=== PATIENT | female | born 1980 | race Hispanic/Latino ===

== ENCOUNTER 2020-06-03 16:04 | Emergency (ER) | payer BC, SELFPAY ==
--- NOTE | ~2020-06-03 | CT_ITS ---
EXAMINATION: CT pelvis w con DATE: 06/03/2020 19:34 INDICATION: Left labial swelling and cellulitis. TECHNIQUE: Computed tomography (CT) of the pelvis was performed with 100 mL Omnipaque 350 intravenous contrast. Automated exposure control and iterative reconstruction technique were employed. The dose- length product was 738.47 mGy-cm. COMPARISON: None FINDINGS: There are no dilated loops of bowel. There are no pathologically enlarged lymph nodes. Ther e is trace pelvic ascites. There is a 4.6 x 2.8 x 5.4 cm cyst in the perineum on the left. There is m ild right hip osteoarthritis and advanced left hip osteoarthritis. There is mild lumbar spondylosis. IMPRESSION: 1. 4.6 x 2.6 x 5.4 cm cyst in the perineum on the left, likely a Bartholin's gland abscess. Reviewed, dictated and finalized at location A. IMPRESSION: 1. 4.6 x 2.6 x 5.4 cm cyst in the perineum on the left, likely a Bartholin's gl and abscess.
[2020-06-03 17:11] VITALS: BP 145/89; PULSE 112; RESP 20; TEMP 36.7; O2SAT 99
--- NOTE | 2020-06-03 18:08 | ED.SKABFB ---
HPI - Skin/Abscess/Foreign Bdy General Chief complaint: Skin/Abscess/Foreign Body Stated complaint: CYST ON BUTTOCK Time Seen by Provider: 06/03/20 17:47 Source: patient Mode of arrival: ambulatory Limitations: no limitations History of Present Illness HPI narrative: This is a 40 year old female that presents to the ER for left labial swelling x 2 days. Reports erythema and pain to the area. Denies drainage. Related Data Home Medications Medication Instructions Recorded Confirmed bupropion HCl 150 mg PO DAILY 06/03/20 hydrocodone-acetaminophen tablet 06/03/20 indomethacin 06/03/20 omeprazole 06/03/20 Allergies Allergy/AdvReac Type Severity Reaction Status Date / Time No Known Allergies Allergy Verified 06/03/20 18:37 Review of Systems Review of Systems: Narrative: CONSTITUTIONAL: Denies fever SKIN: Reports erythema and edema All systems reviewed & are unremarkable except as noted in HPI and below PMFSH Past Medical History Medical History (Updated 06/03/20 @ 21:52 by Lindsey May PA-C) History of depression Family History Family History (System 12/07/19 @ 09:27 by Marie Ahuja) Mother Hypertension Father Hypertension Sibling Hypertension Social History Social History (System 12/07/19 @ 09:27 by Marie Ahuja) Alcohol intake: current Exam Narrative: Exam Narrative: GENERAL: Well-appearing, well-nourished, and in no acute distress. HEAD: Normocephalic, atraumatic. EYES: EOMI. EXTREMITIES: Normal range of motion. No edema. SKIN: Warm, dry, no rash. NEURO: No focal deficits. Alert and oriented x3. PSYCH: Normal mood and affect FEMALE GENITAL: Left labia with moderate erythema and edema. Moderate sized bartholin cyst on the left, tender to palpation Course Consultations Consultation #1: Spoke with Dr. Willis about patient and work-up will follow-up in clinic Date: 06/03/20 Time: 21:46 Vital Signs Vital signs: Vital Signs Temperature 98.1 F 06/03/20 17:11 Pulse Rate 112 H 06/03/20 17:11 Respiratory Rate 06/03/20 17:11 Blood Pressure 145/89 H 06/03/20 17:11 Pulse Oximetry 99 06/03/20 17:11 Temperature 97.7 F 06/03/20 18:33 Pulse Rate 88 07/19/20 18:33 Respiratory Rate 18 06/03/20 18:33 Blood Pressure 127/85 06/03/20 18:33 Pulse Oximetry 98 06/03/20 18:33 Procedures Abscess I/D bartholin's gland: Date of Incision: 06/03/20 Time of Incision: 21:46 Local Anesthetic: lidocaine 1% Amount of anesthesia used (mL): 4 Technique: incised with #11 blade Packing used?: none I&D Results: Pus and Blood MDM - Skin/Abscess/Foreign Bdy MDM Narrative Medical decision making narrative: Patient presents the emergency department for Bartholin gland abscess. She is afebrile and nontoxic-appearing. CBC with mild leukocytosis to 12.9. Inflammatory markers are mildly elevated as well. CT scan of the pelvis shows a 4 x 2 x 5 cm Bartholin gland abscess. Abscess successfully drained. Spoke with Dr. Willis about patient and workup who will follow up in clinic. Patient will be placed on oral Bactrim. Patient is stable and felt appropriate for further outpatient evaluation. She is to follow-up with gynecology. She was given warnings to return to the ER Lab Data Attestation: I reviewed the patient's lab results. Result diagrams: 06/03/20 18:16 06/03/20 18:16 Labs: Lab Results 06/03/20 06/03/20 Range/Units 18:16 18:16 WBC 12.9 H (4.5-10.0) K/mm3 RBC 4.28 (4.2-5.4) M/mm3 Hgb 12.5 (12.0-15.0) g/dL Hct 37.3 (37.0-47.0) % MCV 87.1 (80-100) fl MCH 29.2 (26-34) pg MCHC 33.5 (32-36) g/dl RDW 13.2 (11.5-14.5) % Plt Count 283 (150-375) k/mm3 MPV 9.7 (7.4-10.4) fl Immature Gran % (Auto) 0.5 (0-0.5) % Neut % (Auto) 69.2 (45.5-73.1) % Lymph % (Auto) 22.9 (18.3-44.2) % [place] % (Auto) 5.7 (2.6-8.5) % Eos % (Auto)
[2020-06-03 18:22] LABS: Basophils Percent Auto 0.3 % (0.2-1.2); Eosinophils Absolute Auto 0.2 K/mm3 (0-0.3); Eosinophils Percent Auto 1.4 % (0-4.4); Hematocrit 37.3 % (37.0-47.0); Hemoglobin 12.5 g/dL (12.0-15.0); Immature Granulocyte Absolute 0.06 K/mm3 (0.00-0.031); Immature Granulocyte Percent A 0.5 % (0-0.5); Lymphocytes Absolute Auto 2.96 K/mm3 (0.9-3.2); Lymphocytes Percent Auto 22.9 % (18.3-44.2); Mean Corpuscular HGB Conc 33.5 g/dl (32-36); Mean Corpuscular Hemoglobin 29.2 pg (26-34); Mean Corpuscular Volume 87.1 fl (80-100); Mean Platelet Volume 9.7 fl (7.4-10.4); Monocytes Absolute Auto 0.7 K/mm3 (0.1-0.6); Monocytes Percent Auto 5.7 % (2.6-8.5); Neutrophils Percent Auto 69.2 % (45.5-73.1); Platelet Count Result 283 k/mm3 (150-375); Red Blood Count 4.28 M/mm3 (4.2-5.4); Red Cell Distribution Width 13.2 % (11.5-14.5); White Blood Count 12.9 K/mm3 (4.5-10.0)
[2020-06-03 18:33] VITALS: BP 127/85; PULSE 88; RESP 18; TEMP 36.5; O2SAT 98
[2020-06-03 18:35] LABS: Blood Urea Nitrogen 6 mg/dL (7-17); CRP 4.6 mg/dL (<1.0); Calcium 8.5 mg/dL (8.4-10.2); Carbon Dioxide 25 mmol/L (22-30); Chloride 103 mmol/L (98-107); Estimated CRCL calculation 103 ml/min; Estimated Glomerular Filt Rate > 60; Glucose 92 mg/dL (65-105); Potassium 4.4 mmol/L (3.4-5.0); Sodium 135 mmol/L (137-145)
[2020-06-03 18:50] LABS: Erythrocyte Sedimentation Rate 51 mm/hr (0-20)
[2020-06-03 22:40] VITALS: BP 145/82; PULSE 89; RESP 19; TEMP 36.6; O2SAT 94
== END 2020-06-03 22:08 | disposition home or self-care (01) ==
PROVIDERS: Physician Assistant; Emergency Provider Emergency Medicine; PCP Registered Nurse
DX: N75.1 Abscess of Bartholin's gland (principal); F32.9 Major depressive disorder, single episode, unspecified
CPT/HCPCS: 36415; 56420; 72193; 80048; 85025; 85652; 86140; 87070; 87205; 99284; Q9967

== ENCOUNTER 2021-12-07 17:30 | Emergency (ER) | payer BC, SELFPAY ==
--- NOTE | ~2021-12-07 | XR_ITS ---
EXAMINATION: XR lumbar spine 2-3V DATE: 12/07/2021 20:14 INDICATION: Pain after fall TECHNIQUE: Anteroposterior and lateral views of the lumbar spine, and cone-down lateral view of the l umbosacral junction were obtained. COMPARISON: None. FINDINGS: There is no fracture. There are 2 mm of anterolisthesis of L4 on L5 and L5 on S1. The verte bral body heights and intervertebral disc spaces are maintained. Advanced osteoarthritis is noted in the left hip. IMPRESSION: 1. Mild lumbar spondylosis without acute findings. 2. Advanced osteoarthritis of the left hip. Reviewed, dictated and finalized at location F. ET ACCOUNTANT
--- NOTE | ~2021-12-07 | XR_ITS ---
. EXAMINATION: XR hip LT 2V w AP pelvis INDICATION: Left hip pain TECHNIQUE: AP view the pelvis and two views of the left hip are obtained on four radiographs. COMPARISON: CT, 06/03/2020 FINDINGS: There is advanced osteoarthritis of the left hip and mild osteoarthritis of the right hip. No fracture is identified. The soft tissues are unremarkable. IMPRESSION: 1. Advanced osteoarthritis of the left hip without acute osseous abnormality. Reviewed, dictated and finalized at location F. NG BLOCK CUTTER
[2021-12-07 17:31] VITALS: BP 162/100; PULSE 110; RESP 18; TEMP 36.4; O2SAT 100
[2021-12-07] MEDS: KETOROLAC (*BKC) 60 MG/2 ML VIAL IM (20:15)
--- NOTE | 2021-12-07 20:31 | ED.GENADULT ---
HPI - General Adult General Chief complaint: Fall Stated complaint: fell/ left hip pain Time Seen by Provider: 12/07/21 18:03 Source: patient Mode of arrival: ambulatory Limitations: no limitations History of Present Illness HPI narrative: Patient presents for evaluation of left hip pain. She indicates she has chronic left hip pain and was told in the past that she needs a hip replacement. Yesterday she was at her sister's house and injured her hip. She sat down on the couch, which was missing a coil. She went through the seat and hit her left hip/posterior pelvis against the ground. She states she has 10 out of 10 pain in the affected area, without descriptive quality. No radicular component. Pain is worse with movement and palpation. Baseline functional status is ambulatory with cane. She is still able to bear weight and ambulate with a cane. She has been taking ibuprofen and gabapentin without much improvement in her symptoms thereafter. Related Data Home Medications Medication Instructions Recorded Confirmed bupropion HCl 150 mg PO DAILY 06/03/20 indomethacin 06/03/20 omeprazole 06/03/20 hydrocodone 10 mg-acetaminophen tablet PO Q6H tablet 02/25/21 325 mg tablet Allergies Allergy/AdvReac Type Severity Reaction Status Date / Time No Known Allergies Allergy Verified 12/07/21 17:36 Review of Systems Review of Systems: CONSTITUTIONAL: Denies fever, chills, or sweats. EYES: Denies visual changes, redness, or discharge. ENT: Denies rhinorrhea, congestion, sore throat, or otalgia. CARDIOVASCULAR: Denies chest pain, palpitations, or edema. RESPIRATORY: Denies cough or dyspnea. GASTROINTESTINAL: Denies abdominal pain, nausea, vomiting, or diarrhea. GENITOURINARY: Denies dysuria or hematuria. SKIN: Denies rash or itching. MUSCULOSKELETAL: Reports left hip pain and low back pain. Denies pain otherwise NEUROLOGIC: Denies headache, numbness, dizziness, or weakness. PSYCHIATRIC: Denies anxiety or depression. [facility] Past Medical History Medical History Chronic hip pain History of depression Surgical History Surgical History History of inguinal hernia repair Family History Family History Mother Hypertension Father Hypertension Sibling Hypertension Social History Social History Smoking packs per day: 0.25 Smoking cigarettes per day: 5.0 Smoking status: Current every day smoker Alcohol intake: current Substance use type: marijuana Living arrangements: with family Gender identity (if verbalized by the patient): Female Sexual Orientation (if Verbalized by the Patient): Straight or Heterosexual Spiritual care concerns: No Exam Narrative: GENERAL: Well-appearing, well-nourished, and in no acute distress. HEAD: Normocephalic, atraumatic. EYES: PERRLA and EOMI. ENT: Nares clear, no rhinorrhea or epistaxis. Mucous membranes moist. Oropharynx without tonsillar hypertrophy exudate or other lesions. Bilateral TMs pearly bauer nonbulging NECK: Supple. No adenopathy or masses. No carotid bruits or JVD CHEST: Clear to auscultation. No respiratory distress. No wheezes rales or rhonchi HEART: Regular rate and rhythm. No murmur heard. Normal peripheral pulses. ABDOMEN: Soft, nontender, nondistended, normal active bowel sounds. EXTREMITIES: Normal range of motion. No edema. Tenderness over left lateral hip, posterior pelvis and in midline and paraspinous muscles of lumbar spine SKIN: Warm, dry, no rash. NEURO: No focal deficits. Alert and oriented x3. PSYCH: Normal mood and affect. Course Course Emergency Course: This is a 41-year-old female who present with complaints of left hip pain. X rays were negative for fracture. She was given toradol in the
== END 2021-12-07 21:06 | disposition home or self-care (01) ==
PROVIDERS: Emergency Provider Nurse Practitioner; PCP Internal Medicine
DX: S70.02XA Contusion of left hip, initial encounter (principal); M47.816 Spondylosis without myelopathy or radiculopathy, lumbar region; F32.A Depression, unspecified; F17.210 Nicotine dependence, cigarettes, uncomplicated; M16.12 Unilateral primary osteoarthritis, left hip; W08.XXXA Fall from other furniture, initial encounter
CPT/HCPCS: 72100; 73502; 96372; 99284; J1885

== ENCOUNTER 2022-02-09 14:50 | Emergency (ER) | payer BC, SELFPAY ==
--- NOTE | ~2022-02-09 | US_ITS ---
EXAMINATION: US venous doppler [facility] EXAM DATE: 02/09/2022 15:37 INDICATION: Pain, swelling. TECHNIQUE: Multiple grayscale, color flow and Doppler images of the lower extremity deep venous syste ms bilaterally were obtained and reviewed. Comparison is made to prior examination from 08/07/2010. FINDINGS: Right side: The right common femoral, femoral and profunda veins demonstrate normal color flow, respi ratory variation, augmentation and compressibility. Compressibility, color flow confirmed within the right popliteal, posterior tibial, peroneal, and greater saphenous veins. Left side: The left common femoral, femoral and profunda veins demonstrate normal color flow, respira tory variation, augmentation and compressibility. Compressibility, color flow confirmed within the l eft popliteal, posterior tibial, peroneal, and greater saphenous veins. IMPRESSION: No lower extremity deep venous thrombosis bilaterally. Reviewed, dictated and finalized at location .
[2022-02-09 14:53] VITALS: BP 174/91; PULSE 102; RESP 16; TEMP 36.5; O2SAT 98
[2022-02-09 15:54] LABS: Basophils Percent Auto 0.4 % (0.2-1.2); Eosinophils Absolute Auto 0.2 K/mm3 (0-0.3); Eosinophils Percent Auto 2.4 % (0-4.4); Hematocrit 38.1 % (37.0-47.0); Hemoglobin 12.6 g/dL (12.0-15.0); Immature Granulocyte Absolute 0.02 K/mm3 (0.00-0.031); Immature Granulocyte Percent A 0.3 % (0-0.5); Lymphocytes Absolute Auto 2.92 K/mm3 (0.9-3.2); Lymphocytes Percent Auto 42.1 % (18.3-44.2); Mean Corpuscular HGB Conc 33.1 g/dl (32-36); Mean Corpuscular Hemoglobin 29.6 pg (26-34); Mean Corpuscular Volume 89.6 fl (80-100); Mean Platelet Volume 10.9 fl (7.4-10.4); Monocytes Absolute Auto 0.5 K/mm3 (0.1-0.6); Monocytes Percent Auto 7.6 % (2.6-8.5); Neutrophils Absolute Auto 3.3 K/mm3 (1.3-6.7); Neutrophils Percent Auto 47.2 % (45.5-73.1); Platelet Count Result 258 k/mm3 (150-375); Red Blood Count 4.25 M/mm3 (4.2-5.4); Red Cell Distribution Width 14.1 % (11.5-14.5); White Blood Count 6.9 K/mm3 (4.5-10.0)
[2022-02-09 16:04] LABS: Alanine Aminotransferase 22 U/L (4-35); Albumin Level 4.4 g/dL (3.5-5.1); Alkaline Phosphatase 60 U/L (38-126); Anion Gap 6 mmol/L (8-16); Aspartate Amino Transferase 26 U/L (14-36); Bilirubin,Total 0.5 mg/dL (0.2-1.3); Blood Urea Nitrogen 12 mg/dL (7-17); Calcium 8.8 mg/dL (8.4-10.2); Carbon Dioxide 29 mmol/L (22-30); Chloride 103 mmol/L (98-107); Estimated CRCL calculation 102 ml/min; Estimated Glomerular Filt Rate > 60; Glucose 104 mg/dL (65-110); Lactic Acid Reflex 0.9 mmol/L (0.7-2.1); Lipase 25 U/L (23-300); Potassium 3.9 mmol/L (3.4-5.0); Sodium 138 mmol/L (137-145)
[2022-02-09 16:05] LABS: INR 0.9
[2022-02-09 16:06] LABS: Partial Thromboplastin Time 29.9 SECONDS (22.3-36.8)
--- NOTE | 2022-02-09 16:06 | ED.EXTPRO ---
HPI - Extremity Problem General Chief complaint: Extremity Problem,Nontraumatic Stated complaint: lower leg swelling Time Seen by Provider: 02/09/22 15:08 Source: patient Mode of arrival: ambulatory Limitations: no limitations History of Present Illness HPI Narrative: Patient is a 41-year-old female complaining of bilateral lower extremity pain and swelling that started 4 days ago. Patient also complaining of left lower quadrant pain, 5 out of 10, intermittent, started today but now resolved. Patient denies any chest pain, shortness of breath, nausea, vomiting, fever or chills. Related Data Home Medications Medication Instructions Recorded Confirmed bupropion HCl 150 mg PO DAILY 06/03/20 indomethacin 06/03/20 omeprazole 06/03/20 hydrocodone 10 mg-acetaminophen tablet PO Q6H tablet 02/25/21 325 mg tablet Allergies Allergy/AdvReac Type Severity Reaction Status Date / Time No Known Allergies Allergy Verified 02/09/22 15:03 Review of Systems Review of Systems: All systems reviewed & are unremarkable except as noted in HPI and below Constitutional: Constitutional: Denies body ache(s), Denies chills, Denies excessive sweating, Denies fatigue, Denies fever(s), Denies headache(s), Denies lethargy, Denies malaise, Denies weakness and Denies weight loss Eyes: Eyes: Denies blurry vision, Denies change in vision and Denies loss of vision ENT: Denies dizziness, Denies ear discharge, Denies headache(s), Denies lip swelling, Denies epistaxis, Denies nasal congestion, Denies neck pain, Denies throat swelling and Denies tongue swelling Cardiovascular: Cardiovascular: Denies chest pain, Denies chest pain at rest, Denies chest pain with activity, Denies diaphoresis, Denies rapid heart rate, Denies edema, Denies irregular heart rhythm, Denies lightheadedness, Denies palpitations, Denies dyspnea and Denies dyspnea on exertion Respiratory: Respiratory: Denies chest congestion, Denies cough, Denies hemoptysis, Denies dyspnea and Denies dyspnea on exertion Gastrointestinal: Gastrointestinal: Denies melena, Denies hematochezia, Denies diarrhea, Denies nausea, Denies vomiting and Denies hematemesis Musculoskeletal: Musculoskeletal: Denies abnormal gait, Denies deformity, Denies joint swelling, Denies limited range of motion, Denies neck pain and Denies numbness Neurologic: Denies Abnormal speech present, Denies abnormal gait, Denies confusion, Denies dizziness, Denies headache(s), Denies focal weakness, Denies loss of vision, Denies numbness, Denies Other visual disturbances, Denies Sensory deficit (Neuro) and Denies weakness Psychiatric: Psychiatric: Denies confusion, Denies depression, Denies auditory hallucinations, Denies homicidal ideation and Denies suicidal ideation Endocrine: Endocrine: Denies cold intolerance, Denies excessive sweating, Denies fatigue, Denies heat intolerance and Denies palpitations Hematologic/Lymphatic: Hematologic/Lymphatic: Denies easy bleeding and Denies easy bruising Allergic/Immunologic: Allergic/Immunologic: Denies lip swelling, Denies throat swelling and Denies tongue swelling PMFSH Past Medical History Medical History Chronic hip pain History of depression Surgical History Surgical History History of inguinal hernia repair Family History Family History Mother Hypertension Father Hypertension Sibling Hypertension Social History Social History Smoking packs per day: 0.25 Smoking cigarettes per day: 5.0 Smoking status: Current every day smoker Alcohol intake: current Substance use type: marijuana Gender identity (if verbalized by the patient): Female Sexual Orientation (if Verbalized by the Patient): Straight or Heterosexual Spiritual care concerns: No
[2022-02-09] MEDS: HYDROcodone/acetaminophen (*CRX) 5-325 MG TABLET 2 TAB PO (16:36)
[2022-02-09] MEDS: KETOROLAC 30 MG/ML VIAL (*BKC) IV PUSH (16:36)
[2022-02-09 17:00] VITALS: BP 127/94; PULSE 76; RESP 22; O2SAT 100
[2022-02-09] MEDS: POTASSIUM CHLORIDE 20 MEQ PACKET (FOR LIQUID) 40 MEQ PO (17:05)
[2022-02-09] MEDS: FUROSEMIDE 40 MG TABLET PO (17:26)
== END 2022-02-09 17:37 | disposition home or self-care (01) ==
PROVIDERS: Emergency Provider Emergency Medicine; PCP Internal Medicine
DX: R60.0 Localized edema (principal); F32.A Depression, unspecified; F17.210 Nicotine dependence, cigarettes, uncomplicated
CPT/HCPCS: 36415; 80053; 83605; 83690; 85025; 85610; 85730; 93970; 96374; 99284; A9270; J1885

== ENCOUNTER 2024-02-06 19:33 | Emergency (ER) | payer BC, SELFPAY ==
[2024-02-06 19:43] VITALS: PULSE 108; RESP 20; TEMP 36.6; O2SAT 98
[2024-02-06 19:48] VITALS: BP 104/62; PULSE 96; RESP 16; TEMP 37; O2SAT 98
--- NOTE | 2024-02-06 19:48 | ED.SKABFB ---
HPI - Skin/Abscess/Foreign Bdy General Chief complaint: Skin/Abscess/Foreign Body Stated complaint: rash on body Source: patient Mode of arrival: ambulatory Limitations: no limitations History of Present Illness HPI narrative: 43-year-old female presented for complaint of itchy red rash noted to the trunk, hips, and lower legs. She states started about week ago, then she was out of town for 1 week and it improved. When she returned home today it flared up. She applied hydrocortisone and took Claritin today. Denies pain or drainage to the lesions. Denies lip, tongue, or throat swelling, shortness of breath or wheezing. Denies changes to soap, detergent, lotion, or any other exposures. States mother, with whom she resides, had similar symptoms about 2 weeks ago. Related Data Home Medications Medication Instructions Recorded Confirmed omeprazole 40 mg capsule,delayed 40 mg PO DAILY 06/03/20 02/06/24 release Allergies Allergy/AdvReac Type Severity Reaction Status Date / Time No Known Allergies Allergy Verified 02/06/24 19:36 Review of Systems Review of Systems: CONSTITUTIONAL: Denies body aches, fever, chills, or sweats. EYES: Denies visual changes, redness, or discharge. ENT: Denies rhinorrhea, congestion CARDIOVASCULAR: Denies chest pain, palpitations, or edema. RESPIRATORY: Denies cough or dyspnea. GASTROINTESTINAL: Denies abdominal pain, nausea, vomiting, or diarrhea. SKIN: Reports itchy rash MUSCULOSKELETAL: Denies back pain, joint pain, or myalgia. NEUROLOGIC: Denies headache, numbness, tingling, or weakness. [facility] Past Medical History Medical History Chronic hip pain History of depression Surgical History Surgical History History of inguinal hernia repair Family History Family History Mother Hypertension Father Hypertension Sibling Hypertension Social History Social History Smoking packs per day: 0.25 Smoking cigarettes per day: 5.0 Smoking status: Current every day smoker Alcohol intake: current Substance use type: marijuana Living arrangements: with family Gender identity (if verbalized by the patient): Female Sexual Orientation (if Verbalized by the Patient): Straight or Heterosexual Spiritual care concerns: No Comments At time of signature, I have reviewed and agree with nursing past medical, surgical, social and family history unless otherwise noted. Please see nursing chart for further information. There is no relevant family history pertinent to the presenting complaint Exam Narrative: GENERAL: Well-appearing HEAD: Normocephalic, atraumatic. EYES: conjunctivae clear, and EOMI. ENT: Mucous membranes moist. no lip or facial swelling. Oropharynx without edema, erythema or lesions. NECK: Supple. No lymphadenopathy CHEST: Clear to auscultation. HEART: Regular rate and rhythm. SKIN: Warm, dry. erythematous round lesions noted to trunk extending into the hips. Few scattered lesions to arms and lower legs. Rash spares the neck and face. NEURO: Alert and oriented x3. Course Course Emergency Course: Patient is aware of diagnosis, understands and agrees to treatment plan. Anticipatory guidance given. Patient agrees to follow-up as directed and is aware of reasons to seek care at the emergency department. Portions of this record may have been created with voice recognition software Level of Care: Express Care Visit Vital Signs Vital signs: Vital Signs Temperature 97.8 F 02/06/24 19:34 Pulse Rate 108 H 02/06/24 19:34 Respiratory Rate 20 02/06/24 19:34 Pulse Oximetry 98 02/06/24 19:34 Oxygen Delivery Room Air 02/06/24 19:34 Temperature 97.8 F 02/06/24 19:43 Pulse Rate 108 H 02/06/24 19:43
== END 2024-02-06 19:53 | disposition home or self-care (01) ==
PROVIDERS: Emergency Provider Nurse Practitioner Family
DX: L30.9 Dermatitis, unspecified (principal); F17.210 Nicotine dependence, cigarettes, uncomplicated; F12.90 Cannabis use, unspecified, uncomplicated
CPT/HCPCS: 99213; G0463

== ENCOUNTER 2024-10-04 17:27 | Emergency (ER) | payer SELFPAY ==
[2024-10-04 17:46] VITALS: BP 184/93; PULSE 84; RESP 16; TEMP 36.1; O2SAT 98
[2024-10-04 17:48] VITALS: BP 184/93; PULSE 84; RESP 16; TEMP 36.1; O2SAT 98
--- NOTE | 2024-10-04 18:34 | ED_ITS ---
HPI - General Adult General Chief complaint: Dental/Oral Stated complaint: BROKE TOOTH, RASH IN BELLY BUTTON Source: patient Mode of arrival: ambulatory Limitations: no limitations History of Present Illness HPI narrative: Patient presents for evaluation of dental pain and a skin concerns her umbilicus. She indicates she fractured a tooth last night in left lower area. She has constant throbbing pain in the affected area. She has been taking ibuprofen without much improvement. No fever, chills, nausea, vomiting. She would like to see a dentist but needs to be smoke free for 30 days to have the dental extraction. She also states that she has a wound to her umbilicus for several days. She reports the skin as being raw . She has noted some fluid leaking from the area. Related Data Home Medications Medication Instructions Recorded Confirmed omeprazole 40 mg capsule,delayed 40 mg PO DAILY 06/03/20 02/06/24 release Allergies Allergy/AdvReac Type Severity Reaction Status Date / Time No Known Allergies Allergy Verified 10/04/24 18:04 Review of Systems Review of Systems: CONSTITUTIONAL: Denies fever, chills, or sweats. EYES: Denies visual changes, redness, or discharge. ENT: reports left lower dental pain.Denies rhinorrhea, congestion, sore throat, or otalgia. CARDIOVASCULAR: Denies chest pain, palpitations, or edema. RESPIRATORY: Denies cough or dyspnea. GASTROINTESTINAL: Denies abdominal pain, nausea, vomiting, or diarrhea. GENITOURINARY: Denies dysuria or hematuria. SKIN: Reports scant umbilicus is being robbed. Reports discharge from the umbilicus. . MUSCULOSKELETAL: Denies back pain, joint pain, or myalgia. NEUROLOGIC: Denies headache, numbness, dizziness, or weakness. PSYCHIATRIC: Denies anxiety or depression. [facility] Past Medical History Medical History Chronic hip pain Fracture of tooth History of depression Surgical History Surgical History History of inguinal hernia repair Family History Family History Mother Hypertension Father Hypertension Sibling Hypertension Social History Social History Smoking packs per day: 0.25 Smoking cigarettes per day: 5.0 Smoking status: Current every day smoker Alcohol intake: current Substance use type: marijuana Living arrangements: with family Gender identity (if verbalized by the patient): Female Sexual Orientation (if Verbalized by the Patient): Straight or Heterosexual Spiritual care concerns: No Exam Narrative: GENERAL: Well-appearing, well-nourished, and in no acute distress. HEAD: Normocephalic, atraumatic. EYES: PERRLA and EOMI. ENT: Nares clear, no rhinorrhea or epistaxis. Mucous membranes moist. She has several dental fractures present. There is no visible or palpable abscess in the gumline. Oropharynx without tonsillar hypertrophy exudate or other lesions. Bilateral TMs pearly bauer nonbulging NECK: Supple. No adenopathy or masses. No carotid bruits or JVD CHEST: Clear to auscultation. No respiratory distress. No wheezes rales or rhonchi HEART: Regular rate and rhythm. No murmur heard. Normal peripheral pulses. ABDOMEN: Soft, nontender, nondistended, normal active bowel sounds. EXTREMITIES: Normal range of motion. No edema. SKIN: There is excoriated skin noted to the umbilicus with a scant amount of watery discharge present. NEURO: No focal deficits. Alert and oriented x3. PSYCH: Normal mood and affect. Course Course Emergency Course: This is a 44-year-old female who presented for evaluation of dental pain and skin concerns to her umbilicus. Will treat with clindamycin. Wound culture was obtained. Will give her small quantity of tramadol. She should work on smoking cessation so she can follow up with her dentist for dental extraction as previously planned. Go to the emergency department for worsening symptoms. Patient in agreement with plan of care. Level of Care: Express Care Visit Vital Signs Vital signs: Vital Signs Temperature 36.1 C L 10/04/24 17:46 Pulse Rate 84 10/04/24 17:46 Respiratory Rate 16 10/04/24 17:46 Blood Pressure 184/93 H 10/04/24 17:46 Pulse Oximetry 98 10/04/24 17:46 Oxygen Delivery Room Air 10/04/24 17:46 Temperature 36.1 C L 10/04/24 17:48 Pulse Rate 84 10/04/24 17:48 Respiratory Rate 16 10/04/24 17:48 Blood Pressure 184/93 H 10/04/24 17:48 Pulse Oximetry 98 10/04/24 17:48 Oxygen Delivery Room Air 10/04/24 17:48 Medical Decision Making Vital Signs Vital Signs: Vital Signs Temperature 36.1 C L 10/04/24 17:46 Pulse Rate 84 10/04/24 17:46 Respiratory Rate 16 10/04/24 17:46 Blood Pressure 184/93 H 10/04/24 17:46 Pulse Oximetry 98 10/04/24 17:46 Oxygen Delivery Room Air 10/04/24 17:46 Temperature 36.1 C L 10/04/24 17:48 Pulse Rate 84 10/04/24 17:48 Respiratory Rate 16 10/04/24 17:48 Blood Pressure 184/93 H 10/04/24 17:48 Pulse Oximetry 98 10/04/24 17:48 Oxygen Delivery Room Air 10/04/24 17:48 Discharge Plan Discharge Clinical Impression: Fracture of tooth, Open wound of umbilical region Patient Disposition: Home, Self-Care Condition: Stable Instructions: Antibiotic Form, Toothache (ED), Acute Wounds (ED) Patient Language: [place] Prescriptions: New clindamycin HCl 300 mg capsule 300 mg PO Q8H Qty: 30 0RF tramadol 50 mg tablet 50 mg PO Q8H PRN (Reason: pain) Qty: 8 0RF No Action famotidine [Pepcid] 40 mg tablet 40 mg PO DAILY Qty: 10 0RF methylprednisolone [Medrol (Kishan)] 4 mg tablets,dose pack See Rx Instructions .ROUTE .COMPLEX Qty: 21 0RF Rx Instructions: orally per package directions omeprazole 40 mg capsule,delayed release(DR/EC) 40 mg PO DAILY Follow-up/Referrals: Minor,Ava Hernandez MD [Primary Care Provider] - Time of Disposition: 18:33
[2024-10-04] MEDS: IBUPROFEN 400 MG TABLET 800 MG PO (18:38)
== END 2024-10-04 18:42 | disposition home or self-care (01) ==
PROVIDERS: Emergency Provider Nurse Practitioner; PCP Internal Medicine
DX: S02.5XXA Fracture of tooth (traumatic), initial encounter for closed fracture (principal); X58.XXXA Exposure to other specified factors, initial encounter; S31.105A Unspecified open wound of abdominal wall, periumbilic region without penetration into peritoneal cavity, initial encounter; F17.210 Nicotine dependence, cigarettes, uncomplicated; F12.90 Cannabis use, unspecified, uncomplicated
CPT/HCPCS: 87070; 87075; 87205; 99213; A9270; G0463

== ENCOUNTER 2025-09-19 13:07 | Emergency (ER) | payer OTHER, SELFPAY ==
[2025-09-19 13:19] VITALS: BP 165/81; PULSE 85; RESP 20; TEMP 36.6; O2SAT 97
--- NOTE | 2025-09-19 13:19 | ED.GENADULT ---
HPI - General Adult General Chief complaint: Back Pain/Injury Stated complaint: Lower Back/Hip Pain Time Seen by Provider: 09/19/25 13:19 Source: patient, RN notes reviewed and old records reviewed Mode of arrival: ambulatory Limitations: no limitations History of Present Illness HPI narrative: 45-year-old female presents to [facility] with multiple complaints. Patient has had intermittent dizziness on and off. States that she was wanting her blood pressure checked. Patient also reports low back pain that has been intermittent. Denies abdominal pain. No midline tenderness. Denies injury. States the back pain has got worse over the last 5 days. Reports pain with walking. Denies any numbness or tingling in extremities. Denies any injury. No loss retention of bowel or bladder. Denies fevers. Denies any chest pain or shortness of breath. Denies any headaches. Denies any blurry vision or change in vision Related Data Home Medications ?Medication ?Instructions ?Recorded ?Confirmed ?Last Taken ?Type omeprazole 40 mg capsule,delayed 40 mg PO DAILY 06/03/20 02/06/24 Unknown History release amoxicillin 500 mg tablet mg 09/19/25 Unknown History Allergies Allergy/AdvReac Type Severity Reaction Status Date / Time No Known Allergies Allergy Verified 09/19/25 13:19 Review of Systems Review of Systems: All systems reviewed & are unremarkable except as noted in HPI and below Constitutional: Constitutional: Reports as per HPI ENT: Reports system reviewed and no additional complaints, except as documented Cardiovascular: Cardiovascular: Reports no additional cardiovascular complaints, Denies chest pain and Denies dyspnea Respiratory: Respiratory: Reports no additional respiratory complaints, Denies chest congestion, Denies cough and Denies dyspnea Musculoskeletal: Musculoskeletal: Reports as per HPI Integumentary/Breasts: Skin/Breast: Reports system reviewed and no additional complaints, except as docu PMFSH Past Medical History Medical History Chronic hip pain Fracture of tooth History of depression Surgical History Surgical History History of inguinal hernia repair Family History Family History Mother Hypertension Father Hypertension Sibling Hypertension Social History Social History Smoking packs per day: 0.25 Smoking cigarettes per day: 5.0 Smoking status: Current every day smoker Alcohol intake: current Substance use type: marijuana Living arrangements: with family Gender identity (if verbalized by the patient): Female Sexual Orientation (if Verbalized by the Patient): Straight or Heterosexual Spiritual care concerns: No Comments At the time of my signature, I reviewed and agree with the nursing past medical, surgical, social, and family history. There is no relevant family history pertinent to the patient complaint. Exam Const: General: cooperative, healthy appearing, comfortable, no acute distress, well developed, alert and well nourished Nutritional Appearance: well nourished Orientation/consciousness: patient oriented x3 Limitations: no limitations HENMT: Head: normal to inspection Ears: hearing grossly normal bilaterally, external ears normal, TM's normal bilaterally, EAC's normal, mastoids normal and no periauricular adenopathy Eyes: General: appearance normal, both eyes and all related structures Alignment and Position: alignment normal Neck: Neck: normal visual inspection, full ROM, no lymphadenopathy and no meningeal signs Chest: Chest palpation & inspection: normal inspection of the chest Resp: Effort & Inspection: normal respiratory effort and able to speak in complete sentences Auscultation: clear to auscultation bilaterally, no crackles, no rales, no rhonchi and no wheezes Cardio: Rate: regular rate GI: GI Palp: No abdominal tenderness Back/Spine/Pelvis: Back: no CVA tenderness and back tenderness (Low lumbar) Cervical Spine: normal cervical lordosis Thoracic/Lumbar Spine: paraspinal muscle tenderness bilaterally in the lower lumbar, No thoracic spinal tenderness and No lumbar spinal tenderness Pelvis: no pain with anterior-posterior compression and no pain with lateral compression Sacrum: no ecchymosis and no erythema Skin: General skin exam: normal color and no rashes or lesions noted Neuro: General: patient oriented x3, gait normal, moves all extremities and no meningeal signs Cognition (Neuro): normal cognition Speech: normal speech Gait exam (Neuro): Normal gait present Extrem: General: normal to inspection, full ROM, capillary refill normal and normal gait Psych: Appearance: grossly normal and well kempt Mental Status: mental status grossly normal Speech and movement: Normal speech and movement present and Clear speech present Affect: normal affect Attitude: cooperative Course Course Level of Care: Express Care Visit Vital Signs Vital signs: Vital Signs Temperature 97.9 F 09/19/25 13:19 Pulse Rate 85 09/19/25 13:19 Respiratory Rate 20 09/19/25 13:19 Blood Pressure 165/81 H 09/19/25 13:19 Pulse Oximetry 97 09/19/25 13:19 Oxygen Delivery Room Air 09/19/25 13:19 Temperature 97.9 F 09/19/25 13:19 Pulse Rate 85 09/19/25 13:19 Respiratory Rate 20 09/19/25 13:19 Blood Pressure 165/81 H 09/19/25 13:19 Pulse Oximetry 97 09/19/25 13:19 Oxygen Delivery Room Air 09/19/25 13:19 Reviewed Medical Decision Making MDM Narrative Medical decision making narrative: Patient sitting in exam room. Patient is nontoxic, vitals stable. Patient presents with multiple complaints. Reports concern for her blood pressure, discussed with patient signs and symptoms to proceed to the emergency room. Stressed the importance of following up with primary care provider because we do not treat nor manage blood pressure. Patient with low back pain reports she has ?knots. No injury. No red flag symptoms. Patient does have spasming to the left lower back. Discussed [id number] treatments as well as prescribing ibuprofen and baclofen. Patient is appropriate for outpatient treatment with close follow-up Discharge instructions reviewed with patient, as well as provided in writing per nursing staff. The instructions also include specific and strict return/GO TO THE ER as well as f/u information. All questions have been answered, and the patient deny any further questions with discharge and discharge plan. Some parts of this dictation were generated by voice recognition software and may contain typographical and/or grammatical inaccuracies. Medical Records Medical records reviewed: Yes I reviewed the external patient's medical records. Vital Signs Vital Signs: Vital Signs Temperature 97.9 F 09/19/25 13:19 Pulse Rate 85 09/19/25 13:19 Respiratory Rate 20 09/19/25 13:19 Blood Pressure 165/81 H 09/19/25 13:19 Pulse Oximetry 97 09/19/25 13:19 Oxygen Delivery Room Air 09/19/25 13:19 Temperature 97.9 F 09/19/25 13:19 Pulse Rate 85 09/19/25 13:19 Respiratory Rate 20 09/19/25 13:19 Blood Pressure 165/81 H 09/19/25 13:19 Pulse Oximetry 97 09/19/25 13:19 Oxygen Delivery Room Air 09/19/25 13:19 Reviewed Lab Data Lab results reviewed: Yes I reviewed the patient's lab results. Labs: Reviewed Critical Care Time Critical Care Time Critical Care Time: No Discharge Plan Discharge Clinical Impression: Strain of lumbar region, Muscle spasm Patient Disposition: Home Condition: Stable Instructions: Antibiotic Form, Low Back Strain (ED), Muscle Spasm (ED), Lower Back Exercises (ED) Additional Instructions: Today your blood pressure was 165/81. Please follow-up with your primary care provider. If you do not have 1 a handout for [facility] has been given to you. Take ibuprofen as directed to decrease inflammation and to help pain. Take Baclofen (muscle relaxer) as directed. Do not drink, drive, operate machinery, or do anything dangerous while taking this medication Exercise:Combine aerobic exercise, like walking or swimming, with specific exercises to keep the muscles in your back and abdomen strong and flexible. Proper Lifting:Be sure to lift heavy items with your legs, not your back. Do not bend over to pick something up. Keep your back straight and bend at your knees. Weight:Maintain a healthy weight. Being overweight puts added stress on your lower back. Avoid Smoking:Both the smoke and the nicotine cause your spine to age faster than normal. Proper Posture:Good posture is important for avoiding future problems. A therapist can teach you how to safely stand, sit, and lift. Use warm moist heat to help with pain. Using topical such as Biofreeze, Harsha-Wilkes or Aspercreme can also help Follow up with Primary provider in 2-3 days, This may become a chronic condition and they will be the one to help manage your pain and order additional testing. Go to the nearest ER if you develop problems with bladder/bowel function, weakness or loss of feeling in one or both of your legs. Patient Language: Uzbek Prescriptions: New baclofen 10 mg tablet 10 mg PO TID PRN (Reason: muscle pain) Qty: 10 0RF ibuprofen 600 mg tablet 600 mg PO TID PRN (Reason: fever or pain) Qty: 30 0RF No Action famotidine [Pepcid] 40 mg tablet 40 mg PO DAILY Qty: 10 0RF amoxicillin 500 mg tablet omeprazole 40 mg capsule,delayed release(DR/EC) 40 mg PO DAILY Follow-up/Referrals: Minor,Ava Hernandez MD [Primary Care Provider, Unknown] Time of Disposition: 13:34
== END 2025-09-19 13:45 | disposition home or self-care (01) ==
PROVIDERS: Emergency Provider Nurse Practitioner; PCP Internal Medicine
DX: S39.012A Strain of muscle, fascia and tendon of lower back, initial encounter (principal); X58.XXXA Exposure to other specified factors, initial encounter; M62.830 Muscle spasm of back; F17.210 Nicotine dependence, cigarettes, uncomplicated; F12.90 Cannabis use, unspecified, uncomplicated
CPT/HCPCS: 99213; G0463